=== PATIENT | female | born 1970 | race Caucasian/White ===

== ENCOUNTER 2020-08-25 05:16 | Inpatient (IN) | payer OTHER ==
[~2020-08-25] VITALS: Ht 175.3 cm; Wt 100.2 kg
[~2020-08-25 05:16] MED LIST: AMARYL 2MG TABLE2 MG PO; APIDRA100 UNIT/1 SC; FERROUS GLUCON324 M1 PO; HYDROCODON-ACE1 EAC4 PO; LACTULOSE20 GM/30 M PO; LASIX 40 MG TAB40 MG PO; METFORMIN ER G500 MG PO; NEURONTIN 100100 MG PO; OMEPRAZOLE40 MG PO; SYNTHROID 100100 MCG PO; VASOTEC2.5 MG PO; ZOFRAN ODT 4 MG4 MG PO
[2020-08-25] MEDS ORDERED: INDERAL TAB 2020 MG PO (07:55)
[2020-08-25] MEDS ORDERED: PROTONIX 40 MG40 M1 PO (07:56)
[2020-08-25] MEDS ORDERED: AMARYL 2MG TABLE2 MG PO (07:57)
[2020-08-25] MEDS ORDERED: GABAPENTIN100 MG PO (08:00)
[2020-08-25] MEDS ORDERED: LEVOTHYROXINE200 MC1 PO (08:01)
[2020-08-25 09:51] LABS: HEMOGLOBIN 8.2 gm/dl (12.3-15.3); RED BLOOD COUNT 2.55 M/UL (4.00-5.10)
[2020-08-28 07:56] LABS: HEMOGLOBIN 7.3 gm/dl (12.3-15.3); WHITE BLOOD COUNT 5.9 K/UL (4.5-11.0)
[2020-08-28 07:57] LABS: RED BLOOD COUNT 2.26 M/UL (4.00-5.10)
--- NOTE | 2020-08-29 12:51 | NUR ---
OKAY TO PULL FROM POC.
--- NOTE | 2020-08-29 17:46 | NUR ---
PATIENT IS LAYING IN BED COMPLAINING OF "NOT BEING ABLE TO BREATHE". O2 SAT WAS 96% AND NASAL CANNULA WAS IN NOSE PROPERLY. PATIENT WAS MOVED BY 4 STAFF MEMBERS IN TO A COMFORTABLE POSITION. 5 MINUTES LATER PATIENT COMPLAINED OF NOT LIKING THIS POSITION ANYMORE. I TRIED TO PUT PILLOW BEHIND PATIENTS BACK FOR SUPPORT AND SHE TRIED TO HIT ME WITH HER FIST. PATIENT CONTINUES TO REFUSE BEING TURNED, WILL ONLY LAY ON LEFT SIDE WITH NO PILLOWS UNDER BACKSIDE FOR SUPPORT. WILL CONTINUE TO MONITOR PATIENT.
[2020-08-30 10:04] LABS: HEMOGLOBIN 7.6 gm/dl (12.3-15.3); RED BLOOD COUNT 2.34 M/UL (4.00-5.10); WHITE BLOOD COUNT 4.1 K/UL (4.5-11.0)
[2020-08-31 03:18] LABS: HEMOGLOBIN 7.3 gm/dl (12.3-15.3); RED BLOOD COUNT 2.24 M/UL (4.00-5.10); WHITE BLOOD COUNT 3.7 K/UL (4.5-11.0)
[2020-09-01 02:48] LABS: HEMOGLOBIN 7.3 gm/dl (12.3-15.3); RED BLOOD COUNT 2.21 M/UL (4.00-5.10); WHITE BLOOD COUNT 3.4 K/UL (4.5-11.0)
--- NOTE | 2020-09-01 07:46 | NUR ---
09/01/20 0746 PATIENT REFUSES TO TURN FROM HER LEFT SIDE, STATING IT'S THE ONLY SIDE SHE FEELS LIKE SHE'S COMFORTABLE AND CAN BREATH. PATIENT WAS EDUCATED ON THE RISKS OF NOT TURNING COULD LEAD TO A PRESSURE WOUND. PATIENT STILL REFUSED TO TURN
[2020-09-02 09:36] LABS: HEMOGLOBIN 7.2 gm/dl (12.3-15.3); RED BLOOD COUNT 2.18 M/UL (4.00-5.10); WHITE BLOOD COUNT 3.6 K/UL (4.5-11.0)
[2020-09-04 09:44] LABS: HEMOGLOBIN 7.2 gm/dl (12.3-15.3); RED BLOOD COUNT 2.19 M/UL (4.00-5.10); WHITE BLOOD COUNT 3.5 K/UL (4.5-11.0)
--- NOTE | 2020-09-05 03:27 | NUR ---
PT HAS BEEN EDUCATED ON THE NECESSITY OF TURNING TO PROTECT THE SKIN AND PREVENT INJURY. PT ADAMANTLY REFUSES TO TURN OFF OF HER LEFT SIDE AFTER MULTIPLE ATTEMPTS. PT ON A BARIATRIC BED
[2020-09-05 10:14] LABS: HBSAG SCREEN Negative (Negative); HEP A AB, IGM Negative (Negative); HEP B CORE AB, IGM Negative (Negative); HEP C VIRUS AB 0.2 (0.0-0.9)
[2020-09-05 19:38] LABS: RED BLOOD COUNT 2.11 M/UL (4.00-5.10)
[2020-09-05 19:44] LABS: HEMOGLOBIN 6.9 gm/dl (12.3-15.3)
[2020-09-06 02:01] LABS: HEMOGLOBIN 6.2 gm/dl (12.3-15.3)
[2020-09-06 08:05] LABS: RED BLOOD COUNT 1.99 M/UL (4.00-5.10)
[2020-09-06 08:53] LABS: WHITE BLOOD COUNT 4.3 K/UL (4.5-11.0)
[2020-09-06 08:54] LABS: HEMOGLOBIN 6.5 gm/dl (12.3-15.3)
[2020-09-06 15:07] LABS: HEMOGLOBIN 7.6 gm/dl (12.3-15.3)
[2020-09-07 10:08] LABS: RED BLOOD COUNT 2.15 M/UL (4.00-5.10); WHITE BLOOD COUNT 4.6 K/UL (4.5-11.0)
[2020-09-08 13:08] LABS: RED BLOOD COUNT 2.02 M/UL (4.00-5.10); WHITE BLOOD COUNT 4.5 K/UL (4.5-11.0)
[2020-09-08 13:13] LABS: HEMOGLOBIN 6.5 gm/dl (12.3-15.3)
[2020-09-09 06:24] LABS: HEMOGLOBIN 7.6 gm/dl (12.3-15.3); WHITE BLOOD COUNT 5.2 K/UL (4.5-11.0)
[2020-09-09 06:29] LABS: RED BLOOD COUNT 2.34 M/UL (4.00-5.10)
[2020-09-10 04:14] LABS: HEMOGLOBIN 7.2 gm/dl (12.3-15.3); RED BLOOD COUNT 2.16 M/UL (4.00-5.10); WHITE BLOOD COUNT 5.7 K/UL (4.5-11.0)
--- NOTE | 2020-09-10 18:29 | NUR ---
PT GOT CONSENT SIGNED FOR [facility] AT 1530 WE DID THE PROCEDURE. HE WANTED ME TO TAKE OFF 6L THE PATIENT WE ENDED UP GETTING 5850L OF FLUID OFF OF THE PTS STOMACH. PT TOLERATED THE PROCEDURE WELL AND HAD NO COMPLAINTS.
--- NOTE | 2020-09-10 18:33 | NUR ---
PT GOT BLOOD PRODUCTS STARTING AT 1320 AND IT RAN TILL 1620. PT TOLERATED IT WELL AND HAD NO SIDE EFFECTS FROM THE BLOOD.
[2020-09-11 04:11] LABS: HEMOGLOBIN 7.8 gm/dl (12.3-15.3); WHITE BLOOD COUNT 5.4 K/UL (4.5-11.0)
[2020-09-11 04:24] LABS: RED BLOOD COUNT 2.39 M/UL (4.00-5.10)
[2020-09-12 02:37] LABS: HEMOGLOBIN 7.6 gm/dl (12.3-15.3); RED BLOOD COUNT 2.34 M/UL (4.00-5.10); WHITE BLOOD COUNT 5.5 K/UL (4.5-11.0)
[2020-09-13 03:32] LABS: HEMOGLOBIN 7.7 gm/dl (12.3-15.3); RED BLOOD COUNT 2.39 M/UL (4.00-5.10); WHITE BLOOD COUNT 4.3 K/UL (4.5-11.0)
[2020-09-14 09:54] LABS: HEMOGLOBIN 7.8 gm/dl (12.3-15.3); RED BLOOD COUNT 2.37 M/UL (4.00-5.10); WHITE BLOOD COUNT 4.2 K/UL (4.5-11.0)
[2020-09-16 08:03] LABS: HEMOGLOBIN 7.3 gm/dl (12.3-15.3); RED BLOOD COUNT 2.24 M/UL (4.00-5.10); WHITE BLOOD COUNT 4.9 K/UL (4.5-11.0)
[2020-09-17 03:18] LABS: HEMOGLOBIN 7.1 gm/dl (12.3-15.3); RED BLOOD COUNT 2.2 M/UL (4.00-5.10); WHITE BLOOD COUNT 4.3 K/UL (4.5-11.0)
[2020-09-18 04:10] LABS: HEMOGLOBIN 8.1 gm/dl (12.3-15.3); WHITE BLOOD COUNT 4.4 K/UL (4.5-11.0)
[2020-09-18 04:11] LABS: RED BLOOD COUNT 2.52 M/UL (4.00-5.10)
[2020-09-18] MEDS ORDERED: BUMETANIDE1 MG PO (10:59)
[2020-09-18] MEDS ORDERED: ALDACTONE 25MG25 MG PO (10:59)
[2020-09-18] MEDS ORDERED: HYDRALAZINE HCL50 MG PO (10:59)
[2020-09-18] MEDS ORDERED: LORTAB 5-325 M1 EACH PO (11:06)
== END 2020-09-18 15:41 | DRG 673 ==
LOC: PROG CARE 05:16 → CCU 06:10 → PROG CARE 06:10 → M/S 08-27 18:48 → PROG CARE 08-28 18:28 → CCU 09-06 01:24 → PROG CARE 09-09 19:58
PROVIDERS: Internal Medicine; Internal Medicine Infectious Disease; Internal Medicine Nephrology; Surgery; ADMIT Internal Medicine
PROC: 05HN33Z Insertion of Infusion Device into Left Internal Jugular Vein, Percutaneous Approach (ICD-10-PCS; 2020-09-05)
PROC: B514ZZA Fluoroscopy of Left Jugular Veins, Guidance (ICD-10-PCS; 2020-09-05)
PROC: 0JH63XZ Insertion of Tunneled Vascular Access Device into Chest Subcutaneous Tissue and Fascia, Percutaneous Approach (ICD-10-PCS; principal; 2020-09-05 12:00)
PROC: B24BZZZ Ultrasonography of Heart with Aorta (ICD-10-PCS; 2020-09-06)
PROC: 30233N1 Transfusion of Nonautologous Red Blood Cells into Peripheral Vein, Percutaneous Approach (ICD-10-PCS; 2020-09-06)
PROC: 5A09457 Assistance with Respiratory Ventilation, 24-96 Consecutive Hours, Continuous Positive Airway Pressure (ICD-10-PCS; 2020-09-06)
PROC: 30233N1 Transfusion of Nonautologous Red Blood Cells into Peripheral Vein, Percutaneous Approach (ICD-10-PCS; 2020-09-08)
PROC: 0W9G3ZZ Drainage of Peritoneal Cavity, Percutaneous Approach (ICD-10-PCS; 2020-09-10)
PROC: 30233N1 Transfusion of Nonautologous Red Blood Cells into Peripheral Vein, Percutaneous Approach (ICD-10-PCS; 2020-09-10)
PROC: 30233N1 Transfusion of Nonautologous Red Blood Cells into Peripheral Vein, Percutaneous Approach (ICD-10-PCS; 2020-09-17)
DX: N17.0 Acute kidney failure with tubular necrosis (principal); K72.00 Acute and subacute hepatic failure without coma; R57.8 Other shock; J96.21 Acute and chronic respiratory failure with hypoxia; K76.7 Hepatorenal syndrome; R18.8 Other ascites; D68.8 Other specified coagulation defects; D61.818 Other pancytopenia; Z68.43 Body mass index [BMI] 50.0-59.9, adult; I31.3 Pericardial effusion (noninflammatory); I13.0 Hypertensive heart and chronic kidney disease with heart failure and stage 1 through stage 4 chronic kidney disease, or unspecified chronic kidney disease; I50.32 Chronic diastolic (congestive) heart failure; E66.2 Morbid (severe) obesity with alveolar hypoventilation; D62 Acute posthemorrhagic anemia; K92.0 Hematemesis; T82.838A Hemorrhage due to vascular prosthetic devices, implants and grafts, initial encounter; K75.81 Nonalcoholic steatohepatitis (NASH); N18.4 Chronic kidney disease, stage 4 (severe); K74.60 Unspecified cirrhosis of liver; I86.4 Gastric varices; E87.5 Hyperkalemia; D64.9 Anemia, unspecified; D69.6 Thrombocytopenia, unspecified; Z66 Do not resuscitate; E11.22 Type 2 diabetes mellitus with diabetic chronic kidney disease; J44.9 Chronic obstructive pulmonary disease, unspecified; F17.210 Nicotine dependence, cigarettes, uncomplicated; E03.9 Hypothyroidism, unspecified; Z83.3 Family history of diabetes mellitus; Z93.3 Colostomy status; Z79.890 Hormone replacement therapy; Z79.4 Long term (current) use of insulin; Z79.899 Other long term (current) drug therapy; Z99.81 Dependence on supplemental oxygen
CPT/HCPCS: ECHO; 36415; 36430; 36600; 71045; 71250; 71260; 76000; 76705; 80048; 80053; 80074; 81001; 82140; 82550; 82553; 82803; 82962; 83036; 83540; 83550; 83605; 83690; 84133; 84300; 84443; 84588; 85007; 85014; 85018; 85025; 85027; 85610; 85730; 86850; 86900; 86901; 86920; 90935; 93005; 93306; 94640; 94660; 94664; 94760; 97110-GP-CQ; 97163; 97164; 97166; 97530-GP-CQ; C1750; C1751; C1769; C9113; J0610; J0690; J0696; J1100; J1642; J1644; J1940; J2250; J2354; J2405; J2550; J2704; J3010; J7030; J7040; J7050; J7120; P9016; P9035; P9047; Q9967; U0003